=== PATIENT | male | born 1950 | race Hispanic/Latino ===

== ENCOUNTER 2017-12-07 05:28 | Emergency (ER) | payer MEDICARE, MEDICAID ==
--- NOTE | 2017-12-07 06:32 | Emergency Department Report ---
ED CPR HPI - General Chief Complaint: Cardiac Arrest/CPR Stated Complaint: CARDIAC ARREST Time Seen by Provider: 12/07/17 06:04 Source: patient Mode of arrival: Ambulatory Limitations: Other - History of Present Illness Initial Comments: Patient is a 67-year-old male who was going to dialysis this morning and then collapsed before getting in the car. 911 paramedics were called to the scene. They note that the patient had no spontaneous heart tones or respirations. Combitube was placed. Patient had ACLS initiated and and had received 3 rounds of epinephrine and bicarbonate calcium before arrival. When the patient arrived to the emergency department via ambulance patient had a brief return to spontaneous circulation. Return to the patient's family the patient has had some shortness of breath lately and states that he doesn't feel like he is getting enough oxygen with his machine that he uses at night. The size that patient has had no chest pain fevers chills cough nausea vomiting or diarrhea. Complaint: collapsed during activity - Related Data Allergies Allergy/AdvReac Type Severity Reaction Status Date / Time No Known Allergies Allergy Unverified 12/07/17 05:53 ED Review of Systems ROS: Stated complaint: CARDIAC ARREST Other details as noted in HPI Comment: Unobtainable due to pts medical conditions ED Past Medical Hx - Past Medical History Previous Medical History?: Yes Hx Renal Disease: Yes (Dialysis ) - Social History Smoking Status: Unknown if ever smoked Substance Use Type: None ED Physical Exam - General Limitations: Other General appearance: obtunded - Head Head exam: Present: atraumatic, normocephalic - Eye Eye exam: Present: other (pupils are fixed and dilated) - ENT ENT exam: Present: mucous membranes moist - Neck Neck exam: Present: normal inspection - Respiratory Respiratory exam: Present: other (no spontaneous respirations) - Cardiovascular Cardiovascular Exam: Present: other (no spontaneous heart tones) - GI/Abdominal GI/Abdominal exam: Present: soft, distended - Rectal Rectal exam: Present: deferred - Skin Skin exam: Present: warm, dry - Central Line Placement Left IJ Consent Obtained: emergent situation Time Out Performed: Yes Prep: mask, gown, gloves Central Line Prep: Chlorhexidine scrub, sterile drapes applied Central Line Lumen Inserted: triple Bloods Obtained for Lab: Yes Central Line Position: good blood return, all ports aspirated, flus, sutured in place with 2-0 Dressing Applied: Tegaderm - Intubation Sedative: none Laryngoscope: Trish Size: 4 ET Tube Size: 8 Tube Secured Depth (cm): 22 Tube Secured Location: lips Tube Placement Confirmation: visualized tube passing t, equal breath sounds bilat, no breath sounds over epi ED Medical Decision Making - Medical Decision Making Please see code sheet regarding the resuscitation efforts. Patient was intubated by me. Patient had a brief return of spontaneous circulation however during central line placement patient went into V. fib. Patient was shocked at 200 J. Patient had a brief round of PEA. Using ultrasound there was no organized cardiac activity and the resuscitation efforts were ended. Family was told of the and consoled Critical care attestation.: If time is entered above; I have spent that time in minutes in the direct care of this critically ill patient, excluding procedure time. ED Disposition Clinical Impression: Cardiac arrest Disposition: DC-20 Is pt being admited?: No Condition: Stable
== END 2017-12-07 09:00 ==
LOC: ED 05:28
DX: I46.9 Cardiac arrest, cause unspecified (principal); N18.6 End stage renal disease; Z99.2 Dependence on renal dialysis